=== PATIENT | female | born 1970 | race Caucasian/White ===

== ENCOUNTER → 2016-12-04 | Day surgery (SDC) | payer BC ==
[~2016-12-04] VITALS: Ht 165.1 cm; Wt 82.1 kg
[~2016-12-04] MED LIST: COLA100C3 PO; FLON1SPR; GLYCOPYRROLATE INJ 0.2 MG/ML 2 ML VIAL As Ordered ONE; HYDROmorphone HCL 2 MG/ML 1ML VIAL (J1170) As Ordered ONE; IBUP600T26 PO; KETOROLAC 60 MG/2 ML VIAL (J1885) As Ordered ONE; LIDOCAINE 2% INJ 100 MG/5 ML SDV (FOR ANES.) As Ordered ONE; LR 1,000 ML IV SCH; MEPERIDINE INJ 25 MG/ML VIAL (J2175) IV PRN; METHYLENE BLUE 0.5% (5MG/ML) 10 ML AMP (PROVAYBLUE)(Q9968 PER 1MG) As Ordered ONE; METOCLOPRAMIDE INJ 10MG/2ML VIAL (J2765) As Ordered ONE; METOCLOPRAMIDE INJ 10MG/2ML VIAL (J2765) IV PRN; MIDAZOLAM INJ 2 MG/2 ML VIAL (J2250) As Ordered ONE; MULT1TAB10 PO; NEOSTIGMINE 1MG/ML 5 ML SYRINGE (J2710) As Ordered ONE; ONDANSETRON 4MG/2ML VIAL (J2405) As Ordered ONE; ONDANSETRON 4MG/2ML VIAL (J2405) IV ONE; ONDANSETRON 4MG/2ML VIAL (J2405) IV PRN; ORSYTAB PO; OXYC1TAB23 PO; PERCOCET 5MG/325MG TAB PO PRN; PROPOFOL 200 MG/20 ML VIAL As Ordered ONE; ROCURONIUM BROMIDE 50 MG/5 ML VIAL As Ordered ONE; SILVER NITRATE APPLICATOR As Ordered ONE; fentaNYL 100 MCG/2 ML INJECTION (J3010) IV PRN; fentaNYL 250 MCG/5 ML INJECTION (J3010) As Ordered ONE
[2016-12-04 06:22] LABS: MEAN CORPUSCULAR HEMOGLOBIN 34.6 pg (27.0-33.0); MEAN CORPUSCULAR HGB CONC 36.4 g/dl (32.0-36.5); RED CELL DISTRIBUTION WIDTH 12.4 % (11.5-14.5); WHITE BLOOD COUNT 6.4 K/mm3 (4.0-10.0)
[2016-12-04 06:38] LABS: CONTROL LINE HCG INT CTR LINE PRESENT
[2016-12-04] MEDS: BUPIVACAINE HCL 0.25% 30 ML VIAL As Ordered ONE (08:09)
[2016-12-04 16:25] VITALS: BP 120/61
== END | disposition home or self-care (01) ==
LOC: M SDC 05:42
PROVIDERS: ATTEND Obstetrics & Gynecology
DX: D39.11 Neoplasm of uncertain behavior of right ovary (principal); N83.201 Unspecified ovarian cyst, right side; Z79.3 Long term (current) use of hormonal contraceptives
CPT/HCPCS: 36415; 58661; 84703; 85027; 86850; 86900; 86901; 88108; 88307; J1170; J1885; J2250; J2405; J2710; J2765; J3010

== ENCOUNTER → 2018-07-12 | Outpatient (REF) | payer BC | LOC: M SFHCLERA 14:47 | DX: J02.9 Acute pharyngitis, unspecified (principal) ==

== ENCOUNTER → 2018-07-12 | Outpatient (CLI) | payer BC | LOC: M LRY 14:48 | DX: R05 Cough (principal) | CPT/HCPCS: 71046 ==

== ENCOUNTER → 2018-09-15 | Outpatient (REF) | payer BC ==
[~2018-09-15] MED LIST changes: -COLA100C3 PO; +COLA100C5 PO; -GLYCOPYRROLATE INJ 0.2 MG/ML 2 ML VIAL As Ordered ONE; -HYDROmorphone HCL 2 MG/ML 1ML VIAL (J1170) As Ordered ONE; +IBUP-1022 PO; -IBUP600T26 PO; -KETOROLAC 60 MG/2 ML VIAL (J1885) As Ordered ONE; -LIDOCAINE 2% INJ 100 MG/5 ML SDV (FOR ANES.) As Ordered ONE; -LR 1,000 ML IV SCH; -MEPERIDINE INJ 25 MG/ML VIAL (J2175) IV PRN; -METHYLENE BLUE 0.5% (5MG/ML) 10 ML AMP (PROVAYBLUE)(Q9968 PER 1MG) As Ordered ONE; -METOCLOPRAMIDE INJ 10MG/2ML VIAL (J2765) As Ordered ONE; -METOCLOPRAMIDE INJ 10MG/2ML VIAL (J2765) IV PRN; -MIDAZOLAM INJ 2 MG/2 ML VIAL (J2250) As Ordered ONE; -NEOSTIGMINE 1MG/ML 5 ML SYRINGE (J2710) As Ordered ONE; -ONDANSETRON 4MG/2ML VIAL (J2405) As Ordered ONE; -ONDANSETRON 4MG/2ML VIAL (J2405) IV ONE; -ONDANSETRON 4MG/2ML VIAL (J2405) IV PRN; -PERCOCET 5MG/325MG TAB PO PRN; -PROPOFOL 200 MG/20 ML VIAL As Ordered ONE; -ROCURONIUM BROMIDE 50 MG/5 ML VIAL As Ordered ONE; -SILVER NITRATE APPLICATOR As Ordered ONE; -fentaNYL 100 MCG/2 ML INJECTION (J3010) IV PRN; -fentaNYL 250 MCG/5 ML INJECTION (J3010) As Ordered ONE
[2018-09-17 15:39] LABS: HPV HYBRID CAPTURE II Negative (Negative)
== END ==
LOC: M SFHCWAGY 13:52
PROVIDERS: ATTEND Nurse Practitioner Family
DX: Z12.4 Encounter for screening for malignant neoplasm of cervix (principal)
CPT/HCPCS: 87624; G0123

== ENCOUNTER → 2018-09-15 | Outpatient (CLI) | payer BC ==
--- NOTE | 2018-09-15 16:34 | REPMRS ---
Patient History The patient states she had a clinical breast exam in 09/27 Patient is nulliparous. Family history of breast cancer at age 50 or over in maternal grandmother, colorectal cancer at age 50 or over in maternal grandfather. Took hormonal contraceptives for 4 years. Digital Woman Screen Mammo: September 15, 2018 - Exam #: [id number] Bilateral CC and MLO view(s) were taken. Technologist: Leydi Palmer, Technologist Prior study comparison: June 09, 2017, digital woman screen mammo performed at [facility]. June 04, 2016, digital woman screen mammo performed at [facility]. April 18, 2015, digital woman screen mammo performed at [facility]. FINDINGS: The breast tissue is heterogeneously dense. This may lower the sensitivity of mammography. There is a moderate amount of heterogeneously dense fibroglandular tissue which is fairly symmetric. There is no interval development of dominant mass, architectural distortion, or clustered microcalcification typical of malignancy. There has been no change in the appearance of the mammogram from the prior studies. 3-D tomosynthesis shows no additional findings. Assessment: BI-RADS/ACR category 1 mammogram. Negative Mammogram. Recommendation Routine screening mammogram of both breasts in 1 year (for women over age 40). This patient's Lifetime Breast Cancer RIsk is estimated at 18.1 %. This mammogram was interpreted with the aid of an FDA-approved computer-aided dectection system. Electronically Signed By: Lane Doyle MD 09/15/18 [id number]
== END ==
LOC: M WHC 13:28
PROVIDERS: ATTEND Nurse Practitioner Family
DX: Z12.31 Encounter for screening mammogram for malignant neoplasm of breast (principal); Z80.0 Family history of malignant neoplasm of digestive organs; Z79.3 Long term (current) use of hormonal contraceptives; Z80.3 Family history of malignant neoplasm of breast

== ENCOUNTER → 2018-09-19 | Outpatient (REF) | payer BC | LOC: M SFHCPLAZ 09:01 | PROVIDERS: ATTEND Dermatology | DX: D22.5 Melanocytic nevi of trunk (principal) ==

== ENCOUNTER → 2019-08-17 | Outpatient (REF) | payer BC ==
[2019-08-17 11:14] LABS: ALBUMIN 4.1 GM/DL (3.2-5.2); ALT/SGPT 23 U/L (12-78); BILIRUBIN,TOTAL 0.5 MG/DL (0.2-1.0); BLOOD UREA NITROGEN 16 MG/DL (7-18); CALCIUM LEVEL 9.5 MG/DL (8.5-10.1); CARBON DIOXIDE LEVEL 28 MEQ/L (21-32); CHLORIDE LEVEL 105 MEQ/L (98-107); CREATININE FOR GFR 0.94 MG/DL (0.55-1.30); GLOMERULAR FILTRATION RATE > 60.0 (>58); GLUCOSE, FASTING 89 MG/DL (70-100); POTASSIUM SERUM 4.2 MEQ/L (3.5-5.1); SODIUM LEVEL 140 MEQ/L (136-145); TOTAL PROTEIN 7.5 GM/DL (6.4-8.2)
== END ==
LOC: M SFHCPLAZ 08:49
PROVIDERS: ATTEND Family Medicine
DX: B35.1 Tinea unguium (principal)

== ENCOUNTER → 2019-09-14 | Outpatient (CLI) | payer BC ==
--- NOTE | 2019-09-14 16:52 | REPMRS ---
Patient History The patient states she had a clinical breast exam in 2019.Family history of breast cancer at age 50 or over in maternal grandmother, colorectal cancer at age 50 or over in maternal grandfather. Took hormonal contraceptives for 4 years. Digital Woman Screen Mammo: September 14, 2019 - Exam #: [id number] Bilateral CC and MLO view(s) were taken. Technologist: Roseanna Pat, Technologist Prior study comparison: September 15, 2018, bilateral digital woman screen mammo performed at [facility]. June 09, 2017, digital woman screen mammo performed at [facility]. June 04, 2016, digital woman screen mammo performed at [facility]. FINDINGS: The breast tissue is heterogeneously dense. This may lower the sensitivity of mammography. There is a moderate amount of heterogeneously dense fibroglandular tissue which is fairly symmetric. There is no interval development of dominant mass, architectural distortion, or grouped microcalcification typical of malignancy. There has been no change in the appearance of the mammogram from the prior studies. 3-D tomosynthesis shows no additional findings. Assessment: BI-RADS/ACR category 1 mammogram. Negative Mammogram. Recommendation Routine screening mammogram of both breasts in 1 year (for women over age 40). This patient's Lifetime Breast Cancer RIsk is estimated at 17.9 %. This mammogram was interpreted with the aid of an FDA-approved computer-aided dectection system. Electronically Signed By: Lane Doyle MD 09/14/19 [id number]
== END ==
LOC: M WHC 14:56
PROVIDERS: ATTEND Nurse Practitioner Family
DX: Z12.31 Encounter for screening mammogram for malignant neoplasm of breast (principal); Z92.0 Personal history of contraception

== ENCOUNTER → 2019-09-25 | Outpatient (CLI) | payer BC ==
[2019-09-25 18:09] LABS: ALBUMIN 4.3 GM/DL (3.2-5.2); BILIRUBIN,DIRECT 0.2 MG/DL (0.0-0.2); BILIRUBIN,TOTAL 0.8 MG/DL (0.2-1.0); TOTAL PROTEIN 7.8 GM/DL (6.4-8.2)
== END ==
LOC: M PLALAB 13:37
PROVIDERS: ATTEND Family Medicine
DX: B35.1 Tinea unguium (principal)

== ENCOUNTER → 2020-09-30 | Outpatient (CLI) | payer BC ==
--- NOTE | 2020-09-30 11:42 | REPMRS ---
Patient History The patient states she had a clinical breast exam in 09/2020 Family history of breast cancer at age 50 or over in maternal grandmother, colorectal cancer at age 50 or over in maternal grandfather. Took hormonal contraceptives for 4 years. Digital Woman Screen Mammo: September 30, 2020 - Exam #: [id number] Bilateral CC and MLO view(s) were taken. Technologist: Leydi Palmer, Technologist Prior study comparison: September 14, 2019, bilateral digital woman screen mammo performed at [facility]. September 15, 2018, bilateral digital woman screen mammo performed at [facility]. June 09, 2017, digital woman screen mammo performed at [facility]. FINDINGS: The breast tissue is heterogeneously dense. This may lower the sensitivity of mammography. The Volpara volumetric breast density category is: C. There is a moderate amount of heterogeneously dense fibroglandular tissue which is fairly symmetric. There is no interval development of dominant mass, architectural distortion, or grouped microcalcification typical of malignancy. There has been no change in the appearance of the mammogram from the prior studies. 3-D tomosynthesis shows no additional findings. Assessment: BI-RADS/ACR category 1 mammogram. Negative Mammogram. Recommendation Routine screening mammogram of both breasts in 1 year (for women over age 40). This patient's [facility] Lifetime Breast Cancer RIsk is estimated at 17.6 %. This mammogram was interpreted with the aid of an FDA-approved computer-aided dectection system. Electronically Signed By: Lane Doyle MD 09/30/20 [id number]
== END ==
LOC: M WHC 10:07
PROVIDERS: ATTEND Nurse Practitioner Family
DX: Z12.31 Encounter for screening mammogram for malignant neoplasm of breast (principal); Z92.0 Personal history of contraception

== ENCOUNTER → 2021-06-06 | Outpatient (CLI) | payer BC ==
[~2021-06-06] MED LIST changes: +MULT-90 PO
== END ==
LOC: M LABSMTC 09:11
PROVIDERS: ATTEND Anesthesiology
DX: Z01.812 Encounter for preprocedural laboratory examination (principal); Z20.822 Contact with and (suspected) exposure to COVID-19

== ENCOUNTER 2021-06-11 06:48 | Day surgery (SDC) | payer BC ==
[~2021-06-11] VITALS: Ht 165.1 cm; Wt 84.7 kg
[~2021-06-11 06:48] MED LIST changes: +NS 1,000 ML IV ONE
--- OUTSIDE RECORDS SUMMARY | 2021-06-11 06:51 | CCD ---
Author Author [facility] Organization [facility] Address Unknown Phone Unavailable Care Team Providers Care Utilization Reviewer Name Role Phone Mike Resendiz MD Unavailable Unavailable Mike Resendiz MD Unavailable Unavailable Mike Resendiz MD Unavailable Unavailable Mike Resendiz MD Unavailable Unavailable Mike Resendiz MD Unavailable Unavailable Mike Resendiz MD Unavailable Unavailable Mike Resendiz MD Unavailable Unavailable Mike Resendiz MD Unavailable Unavailable Mike Resendiz MD Unavailable Unavailable Mike Resendiz MD Unavailable Unavailable Mike Resendiz MD Unavailable Unavailable Mike Resendiz MD Unavailable Unavailable Mike Resendiz MD Unavailable Unavailable Mike Resendiz MD Unavailable Unavailable Mike Resendiz MD Unavailable Unavailable Mike Resendiz MD Unavailable Unavailable Mike Resendiz MD Unavailable Unavailable Mike Resendiz MD Unavailable Unavailable Mike Resendiz MD Unavailable Unavailable Mike Resendiz MD Unavailable Unavailable Mike Resendiz MD Unavailable Unavailable Mike Resendiz MD Unavailable Unavailable Mike Resendiz MD Unavailable Unavailable Mike Resendiz MD Unavailable Unavailable Mike Resendiz MD Unavailable Unavailable Skipton, E Misa MD Unavailable Unavailable Skipton, E Misa MD Unavailable Unavailable Skipton, E Misa MD Unavailable Unavailable Skipton, E Misa MD Unavailable Unavailable Skipton, E Misa MD Unavailable Unavailable Skipton, E Misa MD Unavailable Unavailable Skipton, E Misa MD Unavailable Unavailable Skipton, E Misa MD Unavailable Unavailable Skipton, E Misa MD Unavailable Unavailable Skipton, E Misa MD Unavailable Unavailable Skipton, E Misa MD Unavailable Unavailable Skipton, E Misa MD Unavailable Unavailable Skipton, E Misa MD Unavailable Unavailable Skipton, E Misa MD Unavailable Unavailable Skipton, E Misa MD Unavailable Unavailable Skipton, E Misa MD Unavailable Unavailable Skipton, E Misa MD Unavailable Unavailable Skipton, E Misa MD Unavailable Unavailable Skipton, E Misa MD Unavailable Unavailable Skipton, E Misa MD Unavailable Unavailable Skipton, E Misa MD Unavailable Unavailable Skipton, E Misa MD Unavailable Unavailable Skipton, E Misa MD Unavailable Unavailable Skipton, E Misa MD Unavailable Unavailable Skipton, E Misa MD Unavailable Unavailable Skipton, E Misa MD Unavailable Unavailable Skipton, E Misa MD Unavailable Unavailable Skipton, E Misa MD Unavailable Unavailable Skipton, E Misa MD Unavailable Unavailable Skipton, E Misa MD Unavailable Unavailable Skipton, E Misa MD Unavailable Unavailable Skipton, E Misa MD Unavailable Unavailable Skipton, E Misa MD Unavailable Unavailable Skipton, E Misa MD Unavailable Unavailable Skipton, E Misa MD Unavailable Unavailable Re-disclosure Warning The records that you are about to access may contain information from federally-assisted alcohol or drug abuse programs. If such information is present, then the following federally mandated warning applies: This information has been disclosed to you from records protected by federal confidentiality rules (42 CFR part 2). The federal rules prohibit you from making any further disclosure of this information unless further disclosure is expressly permitted by the written consent of the person to whom it pertains or as otherwise permitted by 42 CFR part 2. A general authorization for the release of medical or other information is NOT sufficient for this purpose. The Federal rules restrict any use of the information to criminally investigate or prosecute any alcohol or drug abuse patient.The records that you are about to access may contain highly sensitive health information, the redisclosure of which is protected by Article 27-F of the [facility] Public Health law. If you continue you may have access to information: Regarding HIV / AIDS; Provided by facilities licensed or operated by the [facility] Office of Mental Health; or Provided by the [facility] Office for People With Developmental Disabilities. If such information is present, then the following [facility] mandated warning applies: This information has been disclosed to you from confidential records which are protected by state law. State law prohibits you from making any further disclosure of this information without the specific written consent of the person to whom it pertains, or as otherwise permitted by law. Any unauthorized further disclosure in violation of state law may result in a fine or group home sentence or both. A general authorization for the release of medical or other information is NOT sufficient authorization for further disc losure. Allergies and Adverse Reactions Type Description Substance Reaction Status Data Source(s ) Drug Allergy NKDA NKDA MEDENT ([facility], ) Family History Family Member Name Family Member Gender Family Member Status Date o f Status Description Data Source(s) Unknown Unknown Problem MEDENT ([facility], ) Encounters Encounter Providers Location Date Indications Data Source(s ) [place] [address] [facility] [address] 01/29/2021 12:00:00 AM EDT eCW1 ([facility]ly [facility]) Outpatient Attender: Misa Resendiz MD [facility] 2020 07:40:00 AM EDT - 01/23/2021 07:41:00 AM EDT [id number] Z131 R030 [facility] [id number] Z131 R030 Patient discharged. [place]patient [address] [facility] [address] 12/19/2020 12:00:00 AM EDT eCW1 ([facility]) Out[place] [address] [facility] [address] 09/30/2020 12:00:00 AM EST eCW1 ([facility]) Unknown [address] [facility] [address] 09/27/2020 12:00:00 AM EST eCW1 ([facility]ly [facility]) Immunizations Vaccine Date Status Description Data Source(s) COVID-19 VACCINE Pfizer 10/10/2020 12:00:00 AM EST completed [facility]SIIS Vaccine Series Complete: YESThis Data wa s Submitted to [facility] Via [employer] COVID-19 VACCINE Pfizer 09/18/2020 12:00:00 AM EST completed NYSIIS Vaccine Series Complete: NOThis Data was Submitted to [facility] [employer] Medications Medication Brand Name Start Date Product Form Dose Route Admi nistrative Instructions Pharmacy Instructions Status Indications Reaction Description Data Source(s) SUPREP BOWEL PREP KIT 17.5-3.13-1.6 gram SODIUM, POTASSIUM,M AG SULFATES 02/27/2021 12:00:00 AM EDT recon soln 354 TAKE PER DOCTOR'S BOWEL PREP INSTRUCTIONS TAKE PER DOCTOR'S BOWEL PREP INSTRUCTIONS SOLD: 03/03/2021 [employer] Suprep Bowel Prep Kit Suprep Bowel Prep Kit 02/27/2021 12:00:00 AM EDT active MEDENT ([facility], ) 8 % 09/29/2019 12:00:00 AM EST solution 6 APPLY TO AFFECTED TOENAILS ONCE DAILY AT BEDTIME CLEAN OFF WITH ALCOHOL ONCE WEEKLY APPLY TO AFFECTED TOENAILS ONCE DAILY AT BEDTIME CLEAN OFF WITH ALCOHOL ONCE WEEKLY SOLD: 05/29/2020 [facility] Insurance Providers Payer name Policy type / Coverage type Policy ID Covered alliance party ID Covered alliance party's relationship to pastor Policy Pastor Plan Information [place]/307 [id number] SP [id number] [place] [place]/307 [id number] SP [id number] [place] 306/806 [id number] [employer] [place] [id number] SPOUSE [id number] [employer] [place] [id number] SPOUSE [id number] [place] [place] 302/307 [id number] SP [id number] [employer] BCBS B [id number] S [id number] [place] [place] PPO 302/307 [id number] SP [id number] ANSI-Commercial [id number] ANSI-Commercial [id number] ANSI-Commercial [id number] [place] [place] 302/307 [id number] SP [id number] ANSI-Commercial [id number] [employer] BCBS B [id number] S [id number] ANSI-Commercial [id number] [employer] (O) [id number] Self [id number] [facility] Maintenance Organization (O) [id number] Self [id number] [employer] [facility] [employer] (O) [id number] Self [id number] [facility] Maintenance Organization (O) [id number] Self [id number] [facility] Health Maintenance Organization (O) [id number] Self [id number] [employer] [place] PPO 302/307 [id number] BLUE CROSS BLUE SHIELD-O/P [id number] BCBS [place] PPO 302/307 [id number] [facility] [id number] Problems, Conditions, and Diagnoses No Information Surgeries/Procedures No Information Results ID Date Data Source [id number] 01/23/2021 08:41:00 AM EDT [facility] Name Value Range Interpretation Code Description Data Rachel rce(s) Supporting Document(s) Sodium 143 mmol/L 136-145 Normal (applies to non-numeric resul ts) [facility] Potassium 3.5-5.1 Normal (applies to non-numeric resul ts) [facility] Chloride 105 mmol/L 98-107 Normal (applies to non-numeric resul ts) [facility] Carbon Dioxide CO2 21-32 Normal (applies to non-numer ic results) [facility] Anion Gap 5.0-16.0 Normal (applies to non-numeric resul ts) [facility] BUN 11 mg/dL 7-18 Normal (applies to non-numeric results) [facility] Creatinine,Serum 0.7-1.2 Normal (applies to non-numeric results) [facility] GFR >60 Normal (applies to non-numeric results) [facility] Glucose Level 98 mg/dL 60-99 Normal (applies to non-numeric re sults) [facility] Reference range is only applicable when patient is fasting Note the following drug interference: Sulfasalazine Sulfapyridine Can see falsely depressed Can see falsely elevated result with up to 17% results with up to 11% decrease in measurement increase in measurement Recommend patients be collected for this test prior to administration of either drug. Calcium 8.5-10.1 Normal (applies to non-numeric resul ts) [facility] ID Date Data Source [id number] 01/23/2021 08:41:00 AM EDT [facility] Name Value Range Interpretation Code Description Data Rachel rce(s) Supporting Document(s) Triglycerides 71 mg/dL <150 Normal (applies to non-numeric re sults) [facility] Cholesterol 196 mg/dL 100-200 Normal (applies to non-numeric resu lts) [facility] LDL Cholesterol Calculated 120 0-130 Normal (applies to n on-numeric results) [facility] HDL Cholesterol 62 mg/dL 40-60 Above high normal [facility] Cholesterol/HDL Ratio 3.6-6.7 Below low normal [facility] Procedure Social History Code Duration Value Status Description Data Source(s ) Smoking 01/29/2021 12:00:00 AM EDT Never Smoker completed Never S moker eCW1 ([facility]) Smoking 12/19/2020 12:00:00 AM EDT Never Smoker completed Never S moker eCW1 ([facility]) Smoking 09/30/2020 12:00:00 AM EST Never Smoker completed Never S moker eCW1 ([facility]) Smoking 09/30/2020 12:00:00 AM EST Never Smoker completed Never S moker eCW1 ([facility]) Vital Signs ID Date Data Source UNK Name Value Range Interpretation Code Description Data Source(s) Body weight 186 [lb_av] 186 [lb_av] eCW1 ([facility]) Body height 66 [in_i] 66 [in_i] eCW1 (Count includes the [facility]) Body mass index (BMI) [Ratio] 30.02 kg/m2 30.02 kg/m2 eCW1 ([facility]) Heart rate 95 /min 95 /min eCW1 ([facility]) Respiratory rate 18 /min 18 /min eCW1 ([facility]) Body temperature 97.5 [degF] 97.5 [degF] eCW1 ( [facility]) Systolic blood pressure 142 mm[Hg] 142 mm[Hg] e CW1 ([facility]) Diastolic blood pressure 86 mm[Hg] 86 mm[Hg] eCW1 ([facility]) Body height 65 [in_i] 65 [in_i] MEDKELLY ([facility], ) 5'5" Body weight 185.12 [lb_av] 185.12 [lb_av] MEDEN T ([facility]) Body mass index (BMI) [Ratio] 30.8 kg/m2 30.8 k g/m2 [facility] ([facility]) [place] body weight 125 [lb_av] 125 [lb_av] MEDEN T ([facility]) Body weight 83.973 kg 83.973 kg [facility] ([facility]) Body surface area Derived from formula 1.91 m2 1.91 m2 [facility] ([facility]) Body height 65 [in_i] 65 [in_i] MEDENT ([facility]) 5'5" Body weight 185.12 [lb_av] 185.12 [lb_av] MEDEN T ([facility]) Body mass index (BMI) [Ratio] 30.8 kg/m2 30.8 k g/m2 [facility] ([facility]) [place] body weight 125 [lb_av] 125 [lb_av] MEDEN T ([facility]) Body weight 83.973 kg 83.973 kg [facility] ([facility]) Body surface area Derived from formula 1.91 m2 1.91 m2 [facility] ([facility]) Systolic blood pressure 136 mm[Hg] 136 mm[Hg] EDENT ([facility]) Diastolic blood pressure 76 mm[Hg] 76 mm[Hg] [facility] ([facility]) Body weight 185 [lb_av] 185 [lb_av] eCW1 ([facility]) Body height 66 [in_i] 66 [in_i] eCW1 (Count includes the [facility]) Body mass index (BMI) [Ratio] 29.86 kg/m2 29.86 kg/m2 W1 ([facility]) Heart rate 91 /min 91 /min eCW1 ([facility]) Respiratory rate 18 /min 18 /min eCW1 ([facility]) Body temperature 97.9 [degF] 97.9 [degF] eCW1 ( [facility]) Systolic blood pressure 152 mm[Hg] 152 mm[Hg] e CW1 ([facility]) Diastolic blood pressure 90 mm[Hg] 90 mm[Hg] eCW1 ([facility]) Body weight 192 [lb_av] 192 [lb_av] eCW1 ([facility]) Body weight 87.09 kg 87.09 kg [facility] (Count includes the [facility]) Body height 66 [in_i] 66 [in_i] W1 (Count includes the [facility]) Body mass index (BMI) [Ratio] 30.99 kg/m2 30.99 kg/m2 W1 ([facility]) Systolic blood pressure 135 mm[Hg] 135 mm[Hg] e CW1 ([facility]) Diastolic blood pressure 80 mm[Hg] 80 mm[Hg] eCW1 ([facility])
[2021-06-11] MEDS ORDERED: propofoL 200 MG/20 ML VIAL As Ordered ONE (07:16)
[2021-06-11] MEDS ORDERED: LIDOCAINE 2% 100MG/5ML SDV (FOR ANES.) As Ordered ONE (07:16)
--- NOTE | 2021-06-11 08:45 | ROOR ---
Patient Name: Deisy Wilkerson Procedure Date: 06/11/2021 8:17 AM Date of : 1970 Age: 50 Room: [facility] Gender: Female Note Status: Finalized Procedure: Colonoscopy Indications: Screening for colorectal malignant neoplasm Providers: Andrae Lee MD Referring MD: Misa Resendiz MD Requesting Provider: Medicines: Monitored Anesthesia Care Complications: No immediate complications. Procedure: Pre-Anesthesia Assessment: - Prior to the procedure, a History and Physical was performed, and patient medications and allergies were reviewed. The patient is competent. The risks and benefits of the procedure and the sedation options and risks were discussed with the patient. All questions were answered and informed consent was obtained. Patient identification and proposed procedure were verified by the physician, the nurse and the anesthesiologist in the endoscopy suite. Mental Status Examination: alert and oriented. Airway Examination: normal oropharyngeal airway and neck mobility. Respiratory Examination: clear to auscultation. CV Examination: normal. Prophylactic Antibiotics: The patient does not require prophylactic antibiotics. Prior Anticoagulants: The patient has taken no previous anticoagulant or antiplatelet agents. ASA Grade Assessment: I - A normal, healthy patient. After reviewing the risks and benefits, the patient was deemed in satisfactory condition to undergo the procedure. The anesthesia plan was to use monitored anesthesia care (MAC). Immediately prior to administration of medications, the patient was re-assessed for adequacy to receive sedatives. The heart rate, respiratory rate, oxygen saturations, blood pressure, adequacy of pulmonary ventilation, and response to care were monitored throughout the procedure. The physical status of the patient was re-assessed after the procedure. The Colonoscope was introduced through the anus and advanced to the cecum, identified by appendiceal orifice and ileocecal valve. The colonoscopy was somewhat difficult due to significant looping. The patient tolerated the procedure well. The quality of the bowel preparation was good. Findings: The perianal and digital rectal examinations were normal. There is no endoscopic evidence of diverticula, inflammation, mass or polyps in the entire colon. The retroflexed view of the distal rectum and anal verge was normal and showed no anal or rectal abnormalities. Impression: - The distal rectum and anal verge are normal on retroflexion view. - No specimens collected. Recommendation: - Discharge patient to home (ambulatory). - Advance diet as tolerated. - Repeat colonoscopy in 10 years for screening purposes. Procedure Code(s): --- Professional --- 43698, Colonoscopy, flexible; diagnostic, including collection of specimen(s) by brushing or washing, when performed (separate procedure) Diagnosis Code(s): --- Professional --- Z12.11, Encounter for screening for malignant neoplasm of colon CPT copyright 2019 [employer] [place] [employer]. All rights reserved. The codes documented in this report are preliminary and upon medical imaging technician review may be revised to meet current compliance requirements. Andrae Lee MD Andrae Lee MD 06/11/2021 8:45:37 AM Electronically signed by Andrae Lee MD Number of Addenda: 0 Note Initiated On: 06/11/2021 8:17 AM Estimated Blood Loss: Estimated blood loss: none.
[2021-06-11 09:10] VITALS: BP 138/81
== END 2021-06-11 09:12 | disposition home or self-care (01) ==
LOC: M OPP 06:48
PROVIDERS: ATTEND Surgery
DX: Z12.11 Encounter for screening for malignant neoplasm of colon (principal); Z79.899 Other long term (current) drug therapy; Z88.8 Allergy status to other drugs, medicaments and biological substances

== ENCOUNTER → 2022-02-05 | Outpatient (CLI) | payer BC ==
[~2022-02-05] MED LIST changes: -NS 1,000 ML IV ONE
== END ==
LOC: M WHC 10:18
PROVIDERS: ATTEND Advanced Practice Midwife
DX: Z12.31 Encounter for screening mammogram for malignant neoplasm of breast (principal)

== ENCOUNTER → 2022-02-05 | Outpatient (REF) | payer BC | LOC: M SFHCWAGY 13:01 | PROVIDERS: ATTEND Advanced Practice Midwife | DX: Z12.4 Encounter for screening for malignant neoplasm of cervix (principal); L85.9 Epidermal thickening, unspecified | CPT/HCPCS: 87624; G0123 ==

== ENCOUNTER → 2022-05-13 | Outpatient (CLI) | payer BC | LOC: M SOG 08:05 | PROVIDERS: ATTEND Orthopaedic Surgery Adult Reconstructive Orthopaedic Surgery | DX: M17.12 Unilateral primary osteoarthritis, left knee (principal) ==

== ENCOUNTER → 2022-12-29 | Outpatient (CLI) | payer BC ==
[2022-12-29 10:58] LABS: BASO % 0.6 % (0.0-1.0); EOS # 0.1 10^3/uL (0.0-0.5); LYMPH # 1.1 10^3/uL (1.5-5.0); LYMPH % 22.4 % (24.0-44.0); MEAN CORPUSCULAR HEMOGLOBIN 29.9 pg (27.0-33.0); MEAN CORPUSCULAR HGB CONC 32.6 g/dl (32.0-36.5); MEAN CORPUSCULAR VOLUME 91.9 fl (80.0-96.0); MONO # 0.5 10^3/uL (0.0-0.8); MONO % 10.7 % (2.0-8.0); NEUTROPHILS # 3.2 10^3/uL (1.5-8.5); NEUTROPHILS % 65.1 % (36.0-66.0); PLATELET COUNT, AUTOMATED 155 10^3/uL (150-450); RED BLOOD COUNT 4.68 10^6/uL (4.00-5.40)
[2022-12-29 11:03] LABS: ALBUMIN 3.8 G/DL (3.2-5.2); ALKALINE PHOSPHATASE 68 U/L (46-116); ALT/SGPT 24 U/L (7.0-40); AST/SGOT 24 U/L (<34); BILIRUBIN,TOTAL 0.8 MG/DL (0.3-1.2); BLOOD UREA NITROGEN 14 MG/DL (9-23); CARBON DIOXIDE LEVEL 29 MMOL/L (20-31); CHLORIDE LEVEL 105 MMOL/L (98-107); CHOLESTEROL LEVEL 221 MG/DL (<200); CHOLESTEROL RISK RATIO 3.83 (<5); CREATININE FOR GFR 0.92 MG/DL (0.55-1.30); GLOMERULAR FILTRATION RATE > 60.0 (>51); GLUCOSE, FASTING 100 MG/DL (60-100); HDL CHOLESTEROL 57.6 MG/DL (>40); NON-HDL-C 163.4 MG/DL; POTASSIUM SERUM 4.8 MMOL/L (3.5-5.1); SODIUM LEVEL 140 MMOL/L (136-145); TOTAL PROTEIN 7.3 G/DL (5.7-8.2); TRIGLYCERIDES LEVEL 147 MG/DL (<150)
[2022-12-29 11:05] LABS: FREE T4 0.95 NG/DL (0.89-1.76); THYROID STIMULATING HORMONE 2.075 uIU/ML (0.55-4.78)
== END ==
LOC: M PLALAB 08:51
PROVIDERS: ATTEND Physician Assistant
DX: Z00.00 Encounter for general adult medical examination without abnormal findings (principal); Z13.220 Encounter for screening for lipoid disorders; Z13.29 Encounter for screening for other suspected endocrine disorder

== ENCOUNTER → 2023-05-12 | Outpatient (CLI) | payer BC | LOC: M WHC 14:09 | PROVIDERS: ATTEND Advanced Practice Midwife | DX: Z12.31 Encounter for screening mammogram for malignant neoplasm of breast (principal) ==

== ENCOUNTER → 2023-05-12 | Outpatient (CLI) | payer BC ==
[2023-05-12 18:20] LABS: HEMATOCRIT 43.2 % (36.0-47.0); HEMOGLOBIN 14.5 g/dl (12.0-15.5); MEAN CORPUSCULAR HEMOGLOBIN 31.8 pg (27.0-33.0); MEAN CORPUSCULAR HGB CONC 33.6 g/dl (32.0-36.5); MEAN CORPUSCULAR VOLUME 94.7 fl (80.0-96.0); PLATELET COUNT, AUTOMATED 174 10^3/uL (150-450); RED BLOOD COUNT 4.56 10^6/uL (4.00-5.40); WHITE BLOOD COUNT 6.8 10^3/uL (4.0-10.0)
[2023-05-12 18:54] LABS: FREE T4 1.1 NG/DL (0.89-1.76); THYROID STIMULATING HORMONE 2.835 uIU/ML (0.55-4.78)
== END ==
LOC: M PLALAB 15:41
PROVIDERS: ATTEND Advanced Practice Midwife
DX: N92.0 Excessive and frequent menstruation with regular cycle (principal)

== ENCOUNTER → 2023-05-17 | Outpatient (CLI) | payer BC | LOC: M WHC 13:30 | PROVIDERS: ATTEND Advanced Practice Midwife | DX: N92.0 Excessive and frequent menstruation with regular cycle (principal); N83.202 Unspecified ovarian cyst, left side ==

== ENCOUNTER → 2023-06-09 | Outpatient (REF) | payer BC | LOC: M PLALAB 15:12 | PROVIDERS: ATTEND Advanced Practice Midwife | DX: N92.0 Excessive and frequent menstruation with regular cycle (principal) ==

== ENCOUNTER → 2023-11-05 | Outpatient (CLI) | payer BC | LOC: M WHC 13:54 | PROVIDERS: ATTEND Specialist | DX: N92.0 Excessive and frequent menstruation with regular cycle (principal); N83.202 Unspecified ovarian cyst, left side ==

== ENCOUNTER → 2024-03-04 | Outpatient (CLI) | payer BC | LOC: M EKG 10:38 | PROVIDERS: ATTEND Anesthesiology | DX: Z01.818 Encounter for other preprocedural examination (principal); R94.31 Abnormal electrocardiogram [ECG] [EKG] ==

== ENCOUNTER 2024-03-13 08:09 | Day surgery (SDC) | payer BC ==
[~2024-03-13] VITALS: Ht 165.1 cm; Wt 85.0 kg
[2024-03-13 08:47] LABS: HEMATOCRIT 43.5 % (36.0-47.0); HEMOGLOBIN 14.7 g/dl (12.0-15.5); MEAN CORPUSCULAR HGB CONC 33.8 g/dl (32.0-36.5); MEAN CORPUSCULAR VOLUME 94.6 fl (80.0-96.0); PLATELET COUNT, AUTOMATED 140 10^3/uL (150-450); WHITE BLOOD COUNT 5.6 10^3/uL (4.0-10.0)
[2024-03-13] MEDS ORDERED: IBUP200T46 PO (09:05)
[2024-03-13] MEDS ORDERED: MIDAZOLAM INJ 2MG/2ML VIAL As Ordered ONE (09:07)
[2024-03-13] MEDS ORDERED: fentaNYL 100 MCG/2 ML INJECTION As Ordered ONE (09:07)
[2024-03-13] MEDS ORDERED: KETOROLAC 60MG 2ML VIAL As Ordered ONE (09:09)
[2024-03-13] MEDS ORDERED: LIDOCAINE 2% 100MG/5ML SDV (FOR ANES.) As Ordered ONE (09:09)
[2024-03-13] MEDS ORDERED: ONDANSETRON 4MG 2ML VIAL As Ordered ONE (09:09)
[2024-03-13] MEDS ORDERED: propofoL 200 MG/20 ML VIAL As Ordered ONE (09:09)
[2024-03-13] MEDS: LR 1,000 ML IV SCH (09:24)
[2024-03-13] MEDS ORDERED: ONDANSETRON 4MG 2ML VIAL IV PRN (11:20)
[2024-03-13] MEDS ORDERED: oxyCODONE 5MG TAB PO PRN (11:20)
[2024-03-13] MEDS ORDERED: HYDROMORPHONE HCL 0.5 MG/ 0.5 ML SYRINGE IV PRN (11:20)
[2024-03-13] MEDS ORDERED: LR 1,000 ML IV SCH ×2 (11:20→12:00)
[2024-03-13] MEDS ORDERED: fentaNYL 100 MCG/2 ML INJECTION IV PRN (11:20)
[2024-03-13 11:57] VITALS: BP 147/80; TEMP 96.9; O2SAT 99
[2024-03-13] MEDS ORDERED: PERCOCET 5MG/325MG TAB PO PRN (12:00)
== END 2024-03-13 12:16 | disposition home or self-care (01) ==
LOC: M SDC 08:09
PROVIDERS: ATTEND Specialist
DX: N85.00 Endometrial hyperplasia, unspecified (principal); Z88.8 Allergy status to other drugs, medicaments and biological substances
CPT/HCPCS: 36415; 58563; 81025; 85027; 88305; J1100; J1885; J2250; J2405; J3010

== ENCOUNTER → 2024-05-18 | Outpatient (CLI) | payer BC ==
[~2024-05-18] MED LIST changes: +IBUP200T46 PO
== END ==
LOC: M WHC 16:04
PROVIDERS: ATTEND Advanced Practice Midwife
DX: Z12.31 Encounter for screening mammogram for malignant neoplasm of breast (principal); R92.333 Mammographic heterogeneous density, bilateral breasts

== ENCOUNTER → 2024-11-02 | Outpatient (CLI) | payer BC | LOC: M WUC 09:23 | DX: M17.11 Unilateral primary osteoarthritis, right knee (principal); M47.816 Spondylosis without myelopathy or radiculopathy, lumbar region; M25.561 Pain in right knee; M54.50 Low back pain, unspecified ==

== ENCOUNTER → 2025-02-19 | Outpatient (REF) | payer BC | LOC: M SFHCPLAZ 10:25 | PROVIDERS: ATTEND Nurse Practitioner Family | DX: R10.9 Unspecified abdominal pain (principal) ==

== ENCOUNTER → 2025-06-13 | Outpatient (CLI) | payer BC ==
[~2025-06-13] MED LIST changes: -IBUP-1022 PO; +IBUP600T42 PO
== END ==
LOC: M WHC 09:31
PROVIDERS: ATTEND Advanced Practice Midwife
DX: Z01.419 Encounter for gynecological examination (general) (routine) without abnormal findings (principal); Z12.31 Encounter for screening mammogram for malignant neoplasm of breast; Z11.51 Encounter for screening for human papillomavirus (HPV); N95.1 Menopausal and female climacteric states; R92.333 Mammographic heterogeneous density, bilateral breasts; Z79.899 Other long term (current) drug therapy; Z90.721 Acquired absence of ovaries, unilateral; Z88.8 Allergy status to other drugs, medicaments and biological substances
CPT/HCPCS: 77063; 77067; 87624; G0123

== ENCOUNTER → 2025-06-13 | Outpatient (REF) | payer BC ==
[2025-06-15 15:51] LABS: HPV APTIMA Not Detected (Not Detected)
== END ==
LOC: M PLALAB 09:06
PROVIDERS: ATTEND Advanced Practice Midwife
DX: Z12.4 Encounter for screening for malignant neoplasm of cervix (principal)
CPT/HCPCS: 87624; G0123

== ENCOUNTER → 2025-07-04 | Outpatient (CLI) | payer BC ==
[2025-07-04 13:53] LABS: PROGESTERONE 0.23 NG/ML
[2025-07-04 13:54] LABS: LUTEINIZING HORMONE 5.9 mIU/ML
[2025-07-04 13:55] LABS: ESTRADIOL 91.0 PG/ML
[2025-07-05 09:01] LABS: SEX HORMONE BINDING GLOBULIN 52.0 nmol/L (17-124)
[2025-07-09 23:47] LABS: TESTOSTERONE FREE (DIRECT) 1.7 pg/mL (0.1-6.4); TESTOSTERONE TOTAL FOR T&D 15.0 ng/dL (2-45)
== END ==
LOC: M PLALAB 10:40
PROVIDERS: ATTEND Advanced Practice Midwife
DX: N95.1 Menopausal and female climacteric states (principal); R00.2 Palpitations

== ENCOUNTER → 2025-07-23 | Outpatient (CLI) | payer BC | LOC: M SLEEP HO 11:16 | PROVIDERS: ATTEND Internal Medicine Pulmonary Disease | DX: R06.83 Snoring (principal) ==